=== PATIENT | female | born 1980 | race Caucasian/White ===

== ENCOUNTER 2017-01-29 12:22 | Emergency (ER) | payer MEDICAID ==
[~2017-01-29] VITALS: Ht 162.6 cm; Wt 59.1 kg
[~2017-01-29 12:22] MED LIST: BC; BUSP10TA; CIPR500T87 PO; FERR324T5 PO; HYDR-3240 PO; OMEP10CA4 PO; QUET100T4 PO
[2017-01-29] MEDS ORDERED: SODIUM CHLORIDE 0.9% 1,000ML IVBOLUS ONE (13:00)
[2017-01-29 13:09] LABS: BLOOD UREA NITROGEN 17 mg/dL (7-18)
[2017-01-29 17:08] VITALS: BP 117/67
[2017-01-29] MEDS ORDERED: ALPR0.25 PO (20:33)
== END 2017-01-29 17:23 | disposition home or self-care (01) ==
LOC: ED 17:08
DX: F10.120 Alcohol abuse with intoxication, uncomplicated (principal)
CPT/HCPCS: 36415; 70450; 80048; 80307; 85025; 96360; 99285; J7030

== ENCOUNTER 2017-01-29 20:18 | Emergency (ER) | payer MEDICAID ==
[~2017-01-29] VITALS: Ht 162.6 cm; Wt 57.1 kg
[2017-01-29] MEDS ORDERED: SODIUM CHLORIDE 0.9% 1,000ML IVBOLUS ONE (20:30)
[2017-01-29] MEDS ORDERED: ALPR0.25 PO (20:33)
[2017-01-29 20:52] LABS: ASPARTATE AMINO TRANSFERASE 35 U/L (15-37); BLOOD UREA NITROGEN 14 mg/dL (7-18)
[2017-01-29 20:52] LABS: DAU SCREEN DISCLAIMER
[2017-01-29 20:58] LABS: ACETAMINOPHEN < 2 mcg/mL (10-30)
[2017-01-30 00:36] VITALS: BP 106/58
== END 2017-01-30 00:39 | disposition home or self-care (01) ==
LOC: ED 20:31
DX: F10.220 Alcohol dependence with intoxication, uncomplicated (principal)
CPT/HCPCS: 36415; 80053; 80307; 80329; 81003; 84703; 85025; 93005; 96360; 96361; 99285; J7030; G0480